=== PATIENT | female | born 1980 | race Caucasian/White ===

== ENCOUNTER 2018-06-20 09:23 | Day surgery (SDC) | payer BC ==
--- NOTE | 2018-06-20 06:53 | History and Physical - Ferro ---
CHIEF COMPLAINT/HISTORY OF CHIEF COMPLAINT: This patient presents with a history of intractable lumbar radiculopathy. Due to the failure of therapy, a spinal cord stimulator trial was conducted on 05/22/18 with 75-85% pain control. Due to the failure of therapy and the success of the trial, the patient presents today for implantation of a permanent system. PAST MEDICAL HISTORY: Noncontributory. PAST SURGICAL HISTORY: Lumbar spinal fusion with SI joints. EMPLOYMENT STATUS: Off-work. MEDICATIONS ON ADMISSION: List to be provided. ALLERGIES: HYDROCODONE AND DILAUDID. FAMILY/PSYCHOSOCIAL HISTORY: Social history - Social alcohol and caffeine. Family history - Coronary artery disease and cancer. SYSTEMS REVIEW: The patient is appropriate in no acute distress. The remainder of the systems review is positive for headaches, peripheral edema, and degenerative arthritis. PHYSICAL EXAMINATION: Height is 5'9", weight is 200 pounds. No vital signs. HEENT: Within normal limits. LUNGS: Clear. HEART: Rapid and regular. ABDOMEN: Nontender. MUSCULOSKELETAL: Further examination shows pain extending across the back and into the legs, left greater than right. There currently is mild motor and sensory abnormalities to the left with some weakness and sensory loss. Ambulation - No assistive device utilized. NEUROLOGIC: Cranial nerves are intact. IMPRESSION: POST LUMBAR LAMINECTOMY SYNDROME, ICD-10 CODE M96.1 WITH RADICULOPATHY, ICD-10 CODE M54.16 AND M54.17. PLAN: The patient is here after a successful spinal cord stimulator trial for implantation of a permanent system. The procedure will be considered outpatient , although an overnight stay will be evaluated. The potential risks, side effects and complications have all been carefully reviewed and discussed. JOB NUMBER: [id number] [facility]
[~2018-06-20 09:23] MED LIST: ACETAMINOPHEN 1,000 MG/100 ML BTL IV ONE; CEFAZOLIN 2 Gram 2 GM/50 ML BAG IVPB ONE; FAMOTIDINE 20MG TABLET PO ONE; MECLIZINE 25 MG TABLET PO ONE; METOCLOPRAMIDE 10 MG TABLET PO ONE
[2018-06-20] MEDS ORDERED: MIDAZOLAM HCL 2MG/2ML VIAL IV ONE (09:24)
[2018-06-20] MEDS ORDERED: PROPOFOL 10 MG/ML VIAL IV ONE (09:24)
[2018-06-20] MEDS ORDERED: LIDOCAINE 2% MDV (20MG/ML) 20ML VIAL IV ONE (09:24)
[2018-06-20] MEDS ORDERED: 0.9 % SODIUM CHLORIDE 10 ML VIAL IVP ONE (09:24)
[2018-06-20] MEDS ORDERED: KETAMINE HCL 100MG/1ML VIAL INJ ONE (09:24)
[2018-06-20] MEDS ORDERED: CEFAZOLIN 1G VIAL IM ONE (09:24)
[2018-06-20] MEDS ORDERED: FENTANYL PF 100MCG/2ML VIAL IV ONE (09:24)
[2018-06-20] MEDS ORDERED: RINGERS SOLUTION,LACTATED 1,000 ML IV ONE (10:10)
[2018-06-20] MEDS ORDERED: LIDOCAINE 1% W/EPI 1:100,000 MDV 20 ML VIAL SQ ONE ×2 (11:50)
[2018-06-20] MEDS ORDERED: BUPIVACAINE 0.5% W/EPI MPF 30 ML VIAL SQ ONE (11:50)
--- NOTE | 2018-06-22 08:31 | Operative Note ---
DATE OF SURGERY: 06/20/2018 PREOPERATIVE DIAGNOSIS: Lumbar radiculopathy, ICD10 code M54.16 and M54.17. OPERATION: 1. Fluoroscopic-guided epidural access left T12-L1, placement of spinal cord stimulator lead 1 [employer] In[employer]ion 16, 6 electrodes positioned left T8. 2. Fluoroscopic-guided epidural access left T11-12, placement of spinal cord stimulator lead 2 [employer] Infinion 16, 6 electrodes positioned right T8. 3. Complex programming of lead 1 over 20 minutes followed by complex programming of lead 2 over 20 minutes. 4. Incision and subcutaneous dissection and anchoring of lead 1 and lead 2 to supraspinous fascia with a [employer] locking anchor, nonabsorbable suture. 5. Incision and subcutaneous dissection and creation of subcutaneous pouch at left flank, site picked by patient for generator, a [employer] programmable rechargeable WaveWriter. 6. Tunneling between lead pouch and a generator pouch to interface each lead with generator. 7. Placement of generator pouch, placement of leads into their pouch, closure of both incisions using Stratafix suture 2-0 fascia, 3-0 skin, and Dermabond closure. A complex recovery room programming internal generator home use 2 stimulators for 20 minutes. Indication: This patient presents with a history of intractable lumbar radiculopathy. Due to the failure of all therapies, a spinal cord stimulator trial was conducted with 75% to 85% pain control. Due to the failure of therapy and the success of the trial, the patient presents today for implantation of permanent system. PROCEDURE: Intravenous line, vital sign monitoring, IV sedation. Prepped and draped with sterile technique. Under imaging, from the left, the epidural interspace at 12-1, 11-12 marked, infiltrated using separate curved access Epimed needles to loss of resistance. The space was accessed. Atraumatic. No blood, no CSF. At 12-1, spinal cord stimulator lead 1, a [employer] Infinion 16, 6 electrodes positioned left of midline T8. With the access at 11-12, spinal cord stimulator lead 2, [employer] Infinion 16, 6 electrodes positioned right of T8. Complex programming of lead 1 over 20 minutes followed by complex programming of lead 2 over 20 minutes resulting in complete pattern stimulation across the back and into the legs. Patient indicating we had all the areas of the pain. She was given the option to implant and continue to program or remove. She opted to implant. The question was repeated with the same response. The skin above and below both needles was infiltrated. Incision was made and subcutaneous dissection was conducted to supraspinous fascia. The needle was removed and then each lead was anchored to the supraspinous fascia with a [employer] locking anchor and nonabsorbable suture. At the right posterior gluteal margin at the left flank, a site picked by the patient for the generator, skin infiltrated, incision made, and subcutaneous dissection was conducted to form a pouch suitable for the size and depth of the generator, a [employer] programmable rechargeable WaveWriter. A tunneling tool was used to carry the leads in the generator pouch, and then each lead was interfaced with the generator. Antibiotic irrigation and Bovie for hemostasis. The generator was placed in the pouch and the leads were placed into their own pouch. Then both incisions were closed using Stratafix suture, 2-0 fascia, and 3-0 skin. Dermabond closure was used to approximate the edges of both wounds. She was transferred to recovery room stable. No side effects from the procedure or sedation. When fully awake and alert, complex programming of the 2 leads internal generator was then performed in recovery over 20 minutes reestablishing stimulation and pain control to all the appropriate areas. She was requesting discharge home. She was then prepared for discharge. DISCHARGE INSTRUCTIONS: 1. The sites will remain clean and dry. Now showering or bathing in any way that would disrupt dressings. If it happens, contact the clinic. 2. Standard medications resumed including the antibiotic Levaquin. She will take 500 mg once a day for 14 days. 3. Our office will contact the patient in the next 12-24 hours to set up a time in 7-10 days for us to evaluate the sites. Until then, she is to keep her activities controlled. Limit bend, lift, push, pull. The Dermabond dressing is to stay in place. If it curls/coils, she can trim or cut edges but do not remove the dressing. If it happens, contact the clinic. All other instructions were provided with numbers to contact if problems. Her pain medications are being handled by another source. CC: Dr. Reina WNE
--- NOTE | 2018-06-22 15:08 | RADIOLOGY REPORT ---
EXAM: THORACOLUMBAR SPINE, ONE VIEW HISTORY: SPINAL CANAL STIMULATOR IMPLANT. TECHNIQUE: A single AP portable supine view of the lumbar and lower thoracic portions of the spine were obtained. Comparison: Same day intraoperative radiographs. FINDINGS: There is normal bone mineralization. No lytic or blastic bone lesion. Mild degenerative changes are scattered within the visualized spine most pronounced at the lower lumbar levels. A dual lead intraspinal stimulator is in place with leads entering the spinal canal at the upper lumbar/lower thoracic levels. Lead tips project at the presumed T8 level. The ribs of the last rib bearing vertebra are rudimentary. The leads are connected to a stimulator generator located at the level of the left flank. IMPRESSION: DUAL LEAD INTRASPINAL STIMULATOR IN PLACE. JOB NUMBER: [id number] [facility]
== END 2018-06-20 13:32 | disposition home or self-care (01) ==
LOC: SUR 09:23
PROVIDERS: ATTEND Pain Medicine Interventional Pain Medicine
DX: M54.16 Radiculopathy, lumbar region (principal); M54.17 Radiculopathy, lumbosacral region; M19.90 Unspecified osteoarthritis, unspecified site; G89.29 Other chronic pain; G62.9 Polyneuropathy, unspecified; M86.9 Osteomyelitis, unspecified
CPT/HCPCS: 63650; 63685; 01936; 95972; 81025; 72020; J3010; J0690; J3490; C1820; C1883; J7120

== ENCOUNTER 2019-02-06 06:59 | Day surgery (SDC) | payer OTHER, MEDICARE ==
--- NOTE | 2019-02-06 06:29 | History and Physical - Ferro ---
CHIEF COMPLAINT/HISTORY OF CHIEF COMPLAINT: This patient presents with a history of an intractable lumbar radiculopathy. On 06/20/18 a spinal cord stimulator implant was performed. Although initially this appeared to be doing quite well there appears to have been migration and shifting of stimulation patterns away from the optimal area with stimulation patterns no longer in the correct area. After review and discussion an x-ray demonstrating an inferior migration of both leads somewhat more right than left. She was given the option to either remove or revise and she has opted to revise. PAST MEDICAL HISTORY: Noncontributory. PAST SURGICAL HISTORY: Lumbar spinal fusion. EMPLOYMENT STATUS: Off work. MEDICATIONS ON ADMISSION: List to be provided. ALLERGIES: HYDROCODONE AND DILAUDID. FAMILY/PSYCHOSOCIAL HISTORY: Social history - Social alcohol and caffeine. Family history - Coronary artery disease and cancer. SYSTEMS REVIEW: The patient is appropriate in no acute distress. The remainder of the systems review is positive for headaches, peripheral edema, and degenerative arthritis. PHYSICAL EXAMINATION: Height is 5'9", weight is 200 pounds. No vital signs. HEENT: Within normal limits. LUNGS: Clear. HEART: Rapid and regular. ABDOMEN: Nontender. MUSCULOSKELETAL: Examination of the musculoskeletal system shows diffuse tenderness throughout the lumbar spine. Range of motion causes pain into both legs. There is mild motor and sensory abnormalities to both lower extremities. Ambulation - No assistive device utilized. NEUROLOGIC: Cranial nerves are intact. IMPRESSION: 1. POST LUMBAR LAMINECTOMY SYNDROME, ICD-10 CODE M96.1 WITH RADICULOPATHY, ICD- 10 CODE M54.16 AND M54.17. 2. SPINAL CORD STIMULATOR INTERNAL GENERATOR NONFUNCTIONAL. PLAN: The patient is here for revision and the relocation of the two stimulators. The procedure will be considered outpatient, although an overnight stay will be evaluated. If possible we will simply move up the two leads revising their position, if necessary the two leads will be replaced. We will evaluate the generator to insure she has the updated generator, if necessary we will replace the generator. The procedure will be considered outpatient although an overnight stay will be evaluated. JOB NUMBER: [id number] [facility]
[~2019-02-06 06:59] MED LIST changes: -ACETAMINOPHEN 1,000 MG/100 ML BTL IV ONE; +ACETAMINOPHEN 1,000 MG/100 ML BTL IVPB ONE; -MECLIZINE 25 MG TABLET PO ONE; +SCOPOLAMINE 1 PATCH TDSY TD ONE
[2019-02-06] MEDS ORDERED: LIDOCAINE 2% MDV (20MG/ML) 20ML VIAL IV ONE (07:00)
[2019-02-06] MEDS ORDERED: MIDAZOLAM HCL 2MG/2ML VIAL IV ONE (07:00)
[2019-02-06] MEDS ORDERED: PROPOFOL 10 MG/ML VIAL IV ONE (07:00)
[2019-02-06] MEDS ORDERED: FENTANYL PF 100MCG/2ML VIAL IV ONE (07:00)
[2019-02-06] MEDS ORDERED: 0.9 % SODIUM CHLORIDE 1000ML 1,000 ML IV ONE (07:50)
[2019-02-06] MEDS ORDERED: CEFAZOLIN 1G VIAL IR ONE (09:37)
[2019-02-06] MEDS ORDERED: LIDOCAINE 1% W/EPI 1:100,000 MDV 20 ML VIAL SQ ONE (10:21)
[2019-02-06] MEDS ORDERED: BUPIVACAINE 0.5% W/EPI MPF 30 ML VIAL SQ ONE (10:22)
[2019-02-06] MEDS ORDERED: OXYCODONE/APAP 10MG-325MG TABLET PO ONE (10:59)
--- NOTE | 2019-02-06 13:23 | Operative Note - Ferro ---
DATE OF SURGERY: 02/06/2019 PREOPERATIVE DIAGNOSIS: 1. POST LUMBAR LAMINECTOMY SYNDROME, ICD-10 CODE M96.1 WITH LUMBAR RADICULOPATHY, ICD-10 CODE M54.16 AND M54.17. 2. TWO LEAD IMPLANTED SPINAL CORD STIMULATOR AND INTERNAL GENERATOR NONFUNCTIONAL. OPERATION: 1. FLUOROSCOPICALLY GUIDED INCISION, SUBCUTANEOUS DISSECTION, REVISION AND RELOCATION OF SPINAL CORD STIMULATOR LEAD 1, [employer] 16, 6- ELECTRODES. 2. FLUOROSCOPICALLY GUIDED INCISION, SUBCUTANEOUS DISSECTION, AND REVISION OF SPINAL CORD STIMULATOR LEAD 2, [employer] 16, 6-ELECTRODES. 3. REMOVE AND REVISE GENERATOR AT LEFT POSTERIOR GLUTEAL MARGIN IDENTIFIED [employer] PROGRAMMABLE RECHARGEABLE WAVEWRITER. 4. COMPLEX PROGRAMMING LEAD 1 OVER TWENTY MINUTES FOLLOWED BY COMPLEX PROGRAMMING OF LEAD 2 OVER TWENTY MINUTES. 5. CLOSURE OF INCISIONS USING 2-0 VICRYL FOR FASCIA AND PHILLIP FOR THE SKIN. 6. COMPLEX RECOVERY ROOM PROGRAMMING INTERNAL GENERATOR HOME USE FOR TWENTY MINUTES. SURGEON: John Lorenz D.O. ANESTHESIA: Local sedation. ANESTHESIA PROVIDER: Erik Chung CRNA INDICATION: This patient presents with history of an intractable lumbar radiculopathy which is post laminectomy at source. Due to the failure of therapy, a spinal cord stimulator trial was conducted with success and implant performed. The implant was done on 06/20/18. Initially the system and stimulation appeared to be appropriate in all of the locations. Over a period of several months, her stimulation patterns began to change with complete loss of appropriate stimulation to the left. X-rays show the left lead had migrated inferior up to 3-4 vertebral bodies and the right lead had migrated down at least 1-1/2 to 2 vertebral bodies. At that point with the inability to program the system for appropriate pain pattern control, she was given the option to remove or revise and she opted to revise. PROCEDURE: Intravenous line, vital sign monitoring, IV sedation, prepped and draped, sterile technique. under imaging the incision for the two leads at midline was infiltrated and subcutaneous dissection was conducted at the leads and anchors. The leads were then loosened, the anchors is kept intact. At the left posterior gluteal margin generator pouch a skin incision was made and subcutaneous dissection was conducted to the generator pouch. The pouch was opened, the generator was exteriorized, the lead connections were from the generator. The leads were then pulled back into the midline incision for the lead placement. With the leads loosened at the anchor a stylet was placed into each of the two leads, under imaging the left lead was advanced, positioned at the upper end plate of T8 reestablishing its initial position. With a stylet in the right lead the right lead was then navigated and repositioned at T8 in its original location. With the two leads back to the original locations and the patient awake and alert, complex programming was performed over twenty minutes first left then right. Establishing stimulation to all of the appropriate places and consistent with initial pattern of stimulation, at that point she was given the option to implant or remove and she opted to implant so she was re-sedated. The two anchors were then tightened at each lead and then each lead was by suture anchored to the deep supraspinous fascia at three points, one point proximal to the anchor, two points distal to the anchor at each of the two leads. Antibiotic irrigation, Bovie for hemostasis. A tunnelling tool was used to carry the leads into the generator pouch. Because of the difference in the relative length of each of the two leads into the generator pouch, the generator pouch was revised. Antibiotic irrigation, Bovie for hemostasis. The generator was placed into the revised pouch, secured to the fascia with nonabsorbable suture and then both of the incisions were closed using 2-0 Vicryl fascia and phillip for the skin. Op-Site dressing was placed. She was transported to the Recovery Room stable. There were no unusual pain patterns. In the Recovery Room complex programming of the generator was performed over twenty minutes re-establishing stimulation and pain control in all appropriate areas. She was requesting discharge home. DISCHARGE INSTRUCTIONS: 1. The sites are to remain clean and dry. No showering or bathing in any way that would disrupt the dressing. 2. Standard medications will be resumed including the antibiotic Levaquin 500 mg once a day for fourteen days. 3. Office to contact the patient to set up a time in 7-10 days for us to remove the phillip and examine the sites. At that point she will be cleared for further activities. All other instructions are provided. Numbers to contact if problems given. She was then discharged. JOB NUMBER: [id number] [facility]TDD
--- NOTE | 2019-02-07 11:48 | RADIOLOGY REPORT ---
EXAMINATION: Thoracolumbar Spine Single View EXAM DATE: 02/06/2019 10:44 AM TECHNIQUE: AP INDICATION: SCS REVISION LEADS AND GENERATOR COMPARISON: 06/20/2018 ENCOUNTER: Initial FINDINGS: Left flank generator. Thoracolumbar epidural wires tip projects at the level of T8. IMPRESSION: No acute abnormality, generator and epidural wires as described above Dictated by: Abdi Bauman MD on 02/07/2019 11:45 AM. .
== END 2019-02-06 11:23 | disposition home or self-care (01) ==
LOC: SUR 06:59
PROVIDERS: ATTEND Pain Medicine Interventional Pain Medicine
DX: M96.1 Postlaminectomy syndrome, not elsewhere classified (principal); M54.16 Radiculopathy, lumbar region; M54.17 Radiculopathy, lumbosacral region; T85.193A Other mechanical complication of implanted electronic neurostimulator, generator, initial encounter; G62.9 Polyneuropathy, unspecified
CPT/HCPCS: 63650; 63688; 01936; 95972; 81025; 72020; J3010; J0690; J7030